=== PATIENT | female | born 1970 | race African-American/Black ===

== ENCOUNTER 2018-11-18 07:27 | Emergency (ER) | payer OTHER ==
[2018-11-18 07:34] VITALS: BMI 27.4
[2018-11-18] MEDS ORDERED: ACETAMINOPHEN WITH CODEINE 300MG/30MG TABLET PO ONE (08:11)
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
[2018-11-18] MEDS ORDERED: ACETAMINOPHEN WITH CODEINE 300MG/30MG TABLET ONE (08:43)
[2018-11-18 09:47] VITALS: BP 110/62; PULSE 70; TEMP 98.1
--- NOTE | 2018-11-19 09:05 | EKG ---
Test Reason : Blood Pressure : / mmHG Vent. Rate : 073 BPM Atrial Rate : 073 BPM P-R Int : 170 ms QRS Dur : 078 ms QT Int : 376 ms P-R-T Axes : 066 056 044 degrees QTc Int : 414 ms NORMAL SINUS RHYTHM NORMAL ECG NO PREVIOUS ECGS AVAILABLE Confirmed by TE MICHEL MD ([id number]) on 11/19/2018 9:04:50 AM Referred By: Confirmed By:TE MICHEL MD
== END 2018-11-18 09:45 | disposition home or self-care (01) ==
LOC: JER 07:27
DX: S20.219A Contusion of unspecified front wall of thorax, initial encounter (principal); Y04.2XXA Assault by strike against or bumped into by another person, initial encounter; Y93.89 Activity, other specified; Y92.89 Other specified places as the place of occurrence of the external cause; Y99.8 Other external cause status; Y07.9 Unspecified perpetrator of maltreatment and neglect; Z85.01 Personal history of malignant neoplasm of esophagus; Z86.2 Personal history of diseases of the blood and blood-forming organs and certain disorders involving the immune mechanism
CPT/HCPCS: 71046-TC-FY; 93005; 93010; 99284-25

== ENCOUNTER 2018-11-20 11:41 | Emergency (ER) | payer SELFPAY ==
[2018-11-20 12:00] VITALS: BP 97/63; PULSE 67; TEMP 98.7; BMI 21.0
--- NOTE | 2018-11-22 13:39 | EKG ---
Test Reason : Blood Pressure : / mmHG Vent. Rate : 089 BPM Atrial Rate : 089 BPM P-R Int : 146 ms QRS Dur : 070 ms QT Int : 350 ms P-R-T Axes : 077 060 053 degrees QTc Int : 425 ms NORMAL SINUS RHYTHM POSSIBLE LEFT ATRIAL ENLARGEMENT SEPTAL INFARCT , AGE UNDETERMINED ABNORMAL ECG WHEN COMPARED WITH ECG OF 18-NOV-2018 08:33, NO SIGNIFICANT CHANGE WAS FOUND Confirmed by HILLARY ORTEGA MD ([id number]) on 11/22/2018 1:38:58 PM Referred By: Confirmed By:HILLARY ORTEGA MD
== END 2018-11-20 13:37 | disposition left against medical advice (07) ==
LOC: JER 11:41
DX: Z53.21 Procedure and treatment not carried out due to patient leaving prior to being seen by health care provider (principal)
CPT/HCPCS: 93005; 93010; 99281-25

== ENCOUNTER 2018-12-03 08:15 | Emergency (ER) | payer SELFPAY ==
[2018-12-03 08:21] VITALS: BP 92/59; PULSE 90; TEMP 98; BMI 18.6
[2018-12-03] MEDS ORDERED: KETOROLAC TROMETHAMINE 15 MG/ML VIAL IM ONE (08:41)
[2018-12-03] MEDS ORDERED: KETOROLAC TROMETHAMINE 30 MG/1 ML VIAL ONE (08:43)
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
[2018-12-03 13:16] LABS: URINE APPEARANCE CLEAR; URINE BILIRUBIN NEGATIVE (NEGATIVE); URINE COLOR YELLOW; URINE GLUCOSE (UA) NEGATIVE (NEGATIVE); URINE KETONE NEGATIVE (NEGATIVE)
[2018-12-03 13:17] LABS: PH,URINE 7.5 (5.0-8.0); URINE LEUK ESTERASE 0 (NEGATIVE); URINE NITRITE NEGATIVE (NEGATIVE); URINE PROTEIN NEGATIVE (NEGATIVE); URINE UROBILINOGEN 0.2 mg/dL (0.2-1.0)
== END 2018-12-03 08:54 | disposition home or self-care (01) ==
LOC: JERFT 08:15
PROC: 3E0233Z Introduction of Anti-inflammatory into Muscle, Percutaneous Approach (ICD-10-PCS; principal; 2018-12-03)
DX: M54.5 Low back pain (principal); G89.29 Other chronic pain; Z85.01 Personal history of malignant neoplasm of esophagus; Z87.891 Personal history of nicotine dependence; Z86.59 Personal history of other mental and behavioral disorders
CPT/HCPCS: 81003; 84703; 99282-25

== ENCOUNTER 2018-12-03 14:47 | Emergency (ER) | payer SELFPAY ==
[2018-12-03 15:05] VITALS: BP 105/69; PULSE 92; TEMP 99.2; BMI 19.7
--- NOTE | 2018-12-03 15:20 | PDOC ---
Attending Attestation - Resident Resident Name: Aakash Yen - ED Attending Attestation I have performed the following: I have examined & evaluated the patient, The case was reviewed & discussed with the resident, I agree w/resident's findings & plan, Exceptions are as noted - Medical Decision Making 12/03/18 15:34 I-STOP Reference #: [id number]- patient with prescriptions from multiple providers, some from this ED, some with more long-term rx.
[2018-12-03] MEDS ORDERED: ONDANSETRON *ODT* 4 MG TABLET SL ONE (15:51)
[2018-12-03] MEDS ORDERED: SODIUM CHLORIDE 0.9% 500 ML INFUS.BAG IV ONE ×2 (15:51→18:03)
[2018-12-03] MEDS ORDERED: ONDANSETRON *ODT* 4 MG TABLET ONE (16:02)
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
[2018-12-03 16:53] LABS: BASO % 0.5 % (0-2.0); EOS % 2.5 % (0-4.5); HEMATOCRIT 38.7 % (32.4-45.2); HEMOGLOBIN 12.5 GM/dL (10.7-15.3); LYMPH % 26.4 % (8-40); MCHC 32.4 g/dl (32.0-36.0); MEAN CELL VOLUME 83.3 fl (80-96); NEUT % 60.6 % (42.8-82.8); PLATELET COUNT 218 K/MM3 (134-434); RBC 4.65 M/mm3 (3.60-5.2); RDW 15.2 % (11.6-15.6); WHITE BLOOD COUNT 4.4 K/mm3 (4.0-10.0)
[2018-12-03] MEDS ORDERED: ACETAMINOPHEN 1000 MG/100 ML VIAL (NON FORMULARY) IVPB ONE (17:06)
[2018-12-03] MEDS ORDERED: ACETAMINOPHEN INJECTION 100 ML IVPB ONE (17:19)
[2018-12-03 17:21] LABS: ALBUMIN 3.9 g/dl (3.4-5.0); BILIRUBIN,TOTAL 0.4 mg/dL (0.2-1); BLOOD UREA NITROGEN 12.4 mg/dL (7-18); CALCIUM 9.6 mg/dL (8.5-10.1); CREATININE 0.6 mg/dL (0.55-1.3); TOT PROT 8.3 g/dl (6.4-8.2)
== END 2018-12-03 18:20 | disposition home or self-care (01) ==
LOC: JER 14:47
PROC: 3E033NZ Introduction of Analgesics, Hypnotics, Sedatives into Peripheral Vein, Percutaneous Approach (ICD-10-PCS; principal; 2018-12-03)
PROC: 3E0337Z Introduction of Electrolytic and Water Balance Substance into Peripheral Vein, Percutaneous Approach (ICD-10-PCS; 2018-12-03)
DX: F11.23 Opioid dependence with withdrawal (principal); E11.9 Type 2 diabetes mellitus without complications; Z85.01 Personal history of malignant neoplasm of esophagus; F17.210 Nicotine dependence, cigarettes, uncomplicated
CPT/HCPCS: 36415; 80053; 85025; 99284-25; J0131; Q0162